=== PATIENT | female | born 1955 | race African-American/Black ===

== ENCOUNTER → 2021-12-17 | Outpatient (CLI) | payer OTHER ==
--- NOTE | 2021-12-17 13:38 | KCIC ---
EXAMINATION: MRI LEFT LOWER EXTREMITY JOINT WITHOUT INDICATIONS: Chronic left knee pain anterolaterally. TECHNIQUE: Multiplanar multisequence MRI of the left knee was obtained without contrast. COMPARISON: Bilateral knee radiograph 11/18/2021 FINDINGS: MENISCI: There is blunting of the free edge body lateral meniscus. The medial meniscus is intact. LIGAMENTS: The anterior and posterior cruciate ligaments are intact. The medial collateral ligament and lateral collateral ligament complex are intact. EXTENSOR MECHANISM: The quadriceps and patellar tendons are intact. Fat pads are normal. Retinacula are intact. BONES AND CARTILAGE: No acute fracture. There is widespread full-thickness cartilage loss along the posterior lateral femoral condyle and deep partial-thickness cartilage loss throughout the rest of th e lateral compartment. There are small subchondral cysts and marrow edema in the lateral compartment. Widespread deep partial-thickness cartilage loss throughout the medial compartment. There is full-thickness cartilage loss along the medial patellar facet and scattered partial-thicknes s cartilage loss elsewhere in the patellofemoral compartment. Large subchondral cysts in the patella. Small tricompartmental osteophytes. OTHER: Small joint effusion. Small Garces cyst. Remaining muscles and tendons are intact. Mild fluid along the pes anserine tendons. IMPRESSION: 1. Blunting of the free edge body lateral meniscus, which could be fraying or a small tear. 2. Tricompartmental cartilage loss, greatest in the lateral compartment where there is extensive full -thickness cartilage loss along the lateral femoral condyle. Electronically signed by: Sendy Do MD (12/17/2021 1:36 PM) [id number]
== END ==
LOC: KCIC MRI 09:41
PROVIDERS: ATTEND Physician Assistant
DX: S83.282A Other tear of lateral meniscus, current injury, left knee, initial encounter (principal); M25.762 Osteophyte, left knee; M25.462 Effusion, left knee; M71.22 Synovial cyst of popliteal space [Baker], left knee; X58.XXXA Exposure to other specified factors, initial encounter; Y93.89 Activity, other specified; Y92.89 Other specified places as the place of occurrence of the external cause; Y99.8 Other external cause status
CPT/HCPCS: 73721

== ENCOUNTER 2022-01-11 15:29 | Emergency (ER) | payer OTHER ==
[~2022-01-11] VITALS: Ht 162.6 cm; Wt 90.0 kg
[2022-01-11 15:30] VITALS: BP 145/85
--- NOTE | 2022-01-11 16:26 | RAD ---
EXAMINATION: XR KNEE _4 VIEWS WITH PATELLA_LT CLINICAL HISTORY: Left knee pain following fall. TECHNIQUE: XR KNEE _4 VIEWS WITH PATELLA_LT COMPARISON: None FINDINGS/ IMPRESSION: Moderate to marked medial and lateral compartment narrowing. Mild patellofemoral compartment narrowin g, greatest medially. Tricompartmental small marginal osteophytes. No acute fracture. No joint effusi on. Electronically signed by: Roosevelt Mederos DO (01/11/2022 4:23 PM) S[facility]
--- NOTE | 2022-01-11 17:06 | PHYS DOC ---
Past Medical History Past Medical History: Arthritis (EDGARD LEYVA ENVIRONMENTAL ENGINEERING TECHNICIAN) Past Surgical History: No Surgical History (EDGARD LEYVA ENVIRONMENTAL ENGINEERING TECHNICIAN) Smoking Status: Never Smoker Alcohol Use: None Drug Use: None (OMAYRA BELLAMY DO) General Adult EDM: Chief Complaint: TRAUMA ACTIVATION HPI: HPI: Patient is a 66 year old female with a history of DJD to the left knee presented to the ED today complaining of moderate left knee pain. Patient states she was at work today she twisted wrong and fell. Denies any loss of consciousness. She states she follows up with Ortho follow left knee pain and is scheduled to have total knee replacement. Patient states the pain is worse on weightbearing and range of motion. Describes the pain as sharp and constant. (EDGARD LEYVA APRN) Review of Systems: Review of Systems: Constitutional: Denies fever or chills. [] Eyes: Denies change in visual acuity. [] HENT: Denies nasal congestion or sore throat. [] Respiratory: Denies cough or shortness of breath. [] Cardiovascular: Denies chest pain or edema. [] GI: Denies abdominal pain, nausea, vomiting, bloody stools or diarrhea. [] : Denies dysuria. [] Musculoskeletal: Reports left knee pain Integument: Denies rash. [] Neurologic: Denies headache, focal weakness or sensory changes. [] Psychiatric: Denies depression or anxiety. [] (EDGARD LEYVA ENVIRONMENTAL ENGINEERING TECHNICIAN) Heart Score: C/O Chest Pain: N/A Risk Factors: Risk Factors: DM, Current or recent (<one month) smoker, HTN, HLP, family history of CAD, obesity. Risk Scores: Score 0 - 3: 2.5% MACE over next 6 weeks - Discharge Home Score 4 - 6: 20.3% MACE over next 6 weeks - Admit for Clinical Observation Score 7 - 10: 72.7% MACE over next 6 weeks - Early Invasive Strategies (EDGARD LEYVA ENVIRONMENTAL ENGINEERING TECHNICIAN) Allergies: Allergies: Allergies Coded Allergies Type Severity Reaction Last Updated Verified codeine Allergy Intermediate 01/11/22 Yes meperidine Allergy Intermediate 01/11/22 Yes (EDGARD LEYVA ENVIRONMENTAL ENGINEERING TECHNICIAN) Physical Exam: PE: Constitutional: Well developed, well nourished, no acute distress, non-toxic appearance. [] HENT: Normocephalic, atraumatic, bilateral external ears normal, oropharynx moist, no oral exudates, nose normal. [] Eyes: PERRLA, EOMI, conjunctiva normal, no discharge. [] Neck: Normal range of motion, no tenderness, supple, no stridor. [] Cardiovascular:Heart rate regular rhythm, no murmur [] Lungs & Thorax: Bilateral breath sounds clear to auscultation [] Abdomen: Bowel sounds normal, soft, no tenderness, no masses, no pulsatile masses. [] Skin: Warm, dry, no erythema, no rash. [] Back: No tenderness, no CVA tenderness. [] Extremities: Left knee exam is limited due to pain, no obvious deformities noted, limited range of motion to the left knee. +2 left pedal pulse. Cap refill less than 2 seconds to left lower extremity. Neurologic: Alert and oriented X 3, normal motor function, normal sensory function, no focal deficits noted. [] Psychologic: Affect normal, judgement normal, mood normal. [] (EDGARD LEYVA ENVIRONMENTAL ENGINEERING TECHNICIAN) Current Patient Data: Vital Signs: Vital Signs Date Time Temp Pulse Resp B/P (MAP) Pulse Ox O2 Delivery O2 Flow Rate FiO2 01/11/22 15:30 97.7 18 145/85 (105) 99 Room Air 97.7 (EDGARD LEYVA ENVIRONMENTAL ENGINEERING TECHNICIAN) EKG: EKG: [] (EDGARD LEYVA ENVIRONMENTAL ENGINEERING TECHNICIAN) Radiology/Procedures: Radiology/Procedures: []PROCEDURE: KNEE LEFT 4V EXAMINATION: XR KNEE _4 VIEWS WITH PATELLA_LT CLINICAL HISTORY: Left knee pain following fall. TECHNIQUE: XR KNEE _4 VIEWS WITH PATELLA_LT COMPARISON: None FINDINGS/ IMPRESSION: Moderate to marked medial and lateral compartment narrowing. Mild patellofemoral compartment narrowing, greatest medially. Tricompartmental small marginal osteophytes. No acute fracture. No joint effusion. Electronically signed by: Roosevelt Krishnamurthy DO (01/11/2022 4:23 PM) [facility] DICTATED and SIGNED BY: ROOSEVELT KRISHNAMURTHY DO DATE: 01/11/22 162 (EDGARD LEYVA ENVIRONMENTAL ENGINEERING TECHNICIAN) Course & Med Decision Making: Course & Med Decision Making Pertinent Labs and Imaging studies reviewed. (See chart for details) This a 66-year-old female patient presented to the ED today with left knee pain that began after she fell. Left knee x-rays interpreted by radiologist were negative for any acute findings, noted for severe DJD. Patient follows up with orthopedic doctor and is scheduled to have left knee replacement. Discharge to home. Follow-up with Ortho in the next 7 days. Knee immobilizer applied by the projection technician, neurovascular exam done by me is normal. Ice elevation encouraged. (EDGARD LEYVA APRN) Dragon Disclaimer: Dragon Disclaimer: This electronic medical record was generated, in whole or in part, using a voice recognition dictation system. (EDGARD LEYVA APRN) Departure Departure Impression: Primary Impression: Fall Qualified Codes: W19.XXXA - Unspecified fall, initial encounter Additional Impression: Degenerative joint disease of left knee Qualified Codes: M17.12 - Unilateral primary osteoarthritis, left knee Disposition: HOME / SELF CARE / HOMELESS Condition: STABLE Referrals: VENITA VIERA MD (PCP) AMBER BLACKBURN Jr. DO follow up in 1-2 weeks Patient Instructions: Arthritis, Degenerative-Brief Additional Instructions: You were seen for left knee pain, your left knee x-rays are negative for any acute findings. Try to ice and elevate the extremity. Wear the immobilizer as tolerated. Follow-up with the orthopedic doctor in the next 7 days Scripts Hydrocodone Bit/Acetaminophen (HYDROCODONE-APAP 5-325 ) 1 Tab Tablet 1 TAB PO PRN Q6HRS PRN for PAIN, #14 TAB 0 Refills Prov: EDGARD LEYVA APRN 01/11/22 Attending Signature Attending Signature I have reviewed the PA/PUMP MACHINE OPERATOR's note and plan of care. I was available for consultation as needed during the patient's visit in the emergency department. I agree with the clinical impression, plan, and disposition. (OMAYRA BELLAMY DO) EDGARD LEYVA APRN January 11, 2022 17:06 OMAYRA BELLAMY DO January 17, 2022 16:30
[2022-01-11] MEDS ORDERED: MORPHINE SULFATE 4 MG/ML INJ. IVP ONE (17:15)
[2022-01-11] MEDS ORDERED: HYDR-2761 PO (17:17)
[2022-01-11] MEDS ORDERED: fentaNYL PF VIAL 100 MCG/2 ML VIAL IVP ONE (18:00)
== END 2022-01-11 18:20 | disposition home or self-care (01) ==
LOC: ER 15:29
DX: M25.562 Pain in left knee (principal); M17.12 Unilateral primary osteoarthritis, left knee; Z88.1 Allergy status to other antibiotic agents; Z88.5 Allergy status to narcotic agent; X50.9XXA Other and unspecified overexertion or strenuous movements or postures, initial encounter; Y93.89 Activity, other specified; Y92.89 Other specified places as the place of occurrence of the external cause; Y99.8 Other external cause status
CPT/HCPCS: 29505; 73564; 96374; 99285; J3010